=== PATIENT | female | born 1985 | race Native Hawaiian/Other Pacific Islander ===

== ENCOUNTER 2018-10-06 15:26 | Emergency (ER) | payer MEDICAID ==
[2018-10-06 15:44] VITALS: BP 115/80; PULSE 65; RESP 18; TEMP 97.3; O2SAT 100
--- NOTE | 2018-10-06 15:58 | C.PDOC ---
History Of Present Illness 33yo female, comes to ER reporting she is depressed. Patient states she was terminated from her job today, and previously has had multiple employment terminations. Patient currently denies any medical complaints; also denies any suicidal or homicidal ideation, hallucinations. Time Seen by Provider: 10/06/18 15:35 Chief Complaint (Nursing): Psychiatric Evaluation History Per: Patient History/Exam Limitations: no limitations Associated Symptoms: denies: Suicidal Thoughts, Suicidal Plan Past Medical History Reviewed: Historical Data, Nursing Documentation, Vital Signs Vital Signs: Last Vital Signs Temp 97.3 F L 10/06/18 15:39 Pulse 65 10/06/18 15:39 Resp 18 10/06/18 15:39 BP 115/80 10/06/18 15:39 Pulse Ox 100 10/06/18 15:39 - Medical History PMH: Depression Surgical History: No Surg Hx Family History: States: No Known Family Hx - Social History Hx Alcohol Use: No Hx Substance Use: No - Immunization History Hx Tetanus Toxoid Vaccination: No Hx Influenza Vaccination: No Hx Pneumococcal Vaccination: No Review Of Systems Except As Marked, All Systems Reviewed And Found Negative. Psych: Positive for: Depression. Negative for: Suicidal ideation Physical Exam - Physical Exam Appears: Non-toxic Skin: Normal Color Head: Normacephalic Eye(s): bilateral: Normal Inspection Neck: Supple Neurological/Psych: Oriented x3 Gait: Steady ED Course And Treatment O2 Sat by Pulse Oximetry: 100 (RA) Pulse Ox Interpretation: Normal Medical Decision Making Medical Decision [place] female, reporting depression due to recent job termination Plan: -- Patient has no medical or psychiatric complaints. Patient stable for d/c home. Disposition - Disposition Referrals: [facility] [Outside] Disposition: HOME/ ROUTINE Disposition Time: 15:55 Condition: STABLE Additional Instructions: Return if worsened. 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 - Scribe Statement The provider has reviewed the documentation as recorded by the Jory Flanagan Provider Attestation: All medical record entries made by the rFedyibjing were at my direction and personally dictated by me. I have reviewed the chart and agree that the record accurately reflects my personal performance of the history, physical exam, medical decision making, and the department course for this patient. I have also personally directed, reviewed, and agree with the discharge instructions and disposition.
== END 2018-10-06 16:06 | disposition home or self-care (01) ==
LOC: C.ER 15:26
DX: F32.9 Major depressive disorder, single episode, unspecified (principal)